=== PATIENT | female | born 1965 ===

== ENCOUNTER 2022-07-10 16:40 | Inpatient (IN) | payer SELFPAY ==
[~2022-07-10 16:40] MED LIST: Iopamidol 755 Mg/ML 100 ML Bottle IV ONE
[2022-07-10] MEDS ORDERED: Albuterol/Ipratropium 3.0-0.5 MG/3 ML Neb Soln INH ONE (17:06)
[2022-07-10] MEDS ORDERED: methylPREDNISolone Sodium Succinate 125 MG/2 ML SDV IV ONE (17:06)
[2022-07-10] MEDS ORDERED: Sodium Chloride 0.9% 1,000 ML IV ONE ×2 (17:06→17:23)
[2022-07-10] MEDS ORDERED: Morphine 4 MG/ML Syringe IV ONE (17:06)
[2022-07-10] MEDS ORDERED: cefTRIAXone 1 GM in Sodium Chloride 0.9% 50 ML IV ONE (17:23)
[2022-07-10] MEDS ORDERED: Montelukast 10 MG Tab PO ONE (22:18)
[2022-07-10] MEDS ORDERED: Gabapentin 800 MG Tab PO ONE (22:18)
[2022-07-10] MEDS ORDERED: oxyCODONE 5 MG Tab PO ONE (22:18)
[2022-07-10] MEDS ORDERED: Benzonatate 100 MG Cap PO ONE (23:25)
[2022-07-10] MEDS ORDERED: Enoxaparin 40 MG/0.4 ML Syringe SUBCUT ONE (23:25)
[2022-07-10] MEDS ORDERED: Insulin Glargine,Hum.Rec.Anlog 100 UNIT/ML 3 ML Pen SUBCUT ONE (23:30)
[2022-07-11] MEDS ORDERED: Gabapentin 800 MG Tab PO ONE ×2 (06:30→21:30)
[2022-07-11] MEDS ORDERED: Pantoprazole 40 MG Tab.CR PO ONE (09:00)
[2022-07-11] MEDS ORDERED: Benzonatate 100 MG Cap PO ONE ×2 (10:25→21:40)
[2022-07-11] MEDS ORDERED: methylPREDNISolone Sodium Succinate 40 MG/1 ML SDV IVPUSH ONE ×2 (10:30→22:00)
[2022-07-11] MEDS ORDERED: Albuterol/Ipratropium 3.0-0.5 MG/3 ML Neb Soln INH ONE ×3 (10:30→23:45)
[2022-07-11] MEDS ORDERED: Insulin Aspart 100 Units/ML 3 ML Pen SUBCUT ONE (12:00)
[2022-07-11] MEDS ORDERED: oxyCODONE 5 MG Tab PO ONE ×2 (12:00→21:40)
[2022-07-11] MEDS ORDERED: Montelukast 10 MG Tab PO ONE (21:30)
[2022-07-11] MEDS ORDERED: LORazepam 0.5 MG Tab PO ONE (21:40)
[2022-07-12] MEDS ORDERED: Albuterol/Ipratropium 3.0-0.5 MG/3 ML Neb Soln INH ONE ×4 (05:00→23:00)
[2022-07-12] MEDS ORDERED: Gabapentin 800 MG Tab PO ONE ×3 (05:15→22:00)
[2022-07-12] MEDS ORDERED: Benzonatate 100 MG Cap PO ONE ×2 (05:25→21:00)
[2022-07-12] MEDS ORDERED: Levofloxacin/Dextrose 5%-Water 150 ML IV ONE (10:05)
[2022-07-12] MEDS ORDERED: Pantoprazole 40 MG Tab.CR PO ONE (10:10)
[2022-07-12] MEDS ORDERED: methylPREDNISolone Sodium Succinate 40 MG/1 ML SDV IVPUSH ONE ×2 (10:25→22:00)
[2022-07-12] MEDS ORDERED: Codeine/guaiFENesin 10-100 MG/5 ML Syrup 5 ML Cup PO ONE (14:10)
[2022-07-12] MEDS ORDERED: Montelukast 10 MG Tab PO ONE (21:00)
[2022-07-12] MEDS ORDERED: LORazepam 0.5 MG Tab PO ONE (21:00)
[2022-07-13] MEDS ORDERED: Gabapentin 800 MG Tab PO ONE ×2 (05:45→13:32)
[2022-07-13] MEDS ORDERED: Albuterol/Ipratropium 3.0-0.5 MG/3 ML Neb Soln INH ONE (05:45)
[2022-07-13] MEDS ORDERED: methylPREDNISolone Sodium Succinate 40 MG/1 ML SDV IVPUSH ONE (09:10)
[2022-07-13] MEDS ORDERED: Pantoprazole 40 MG Tab.CR PO ONE (09:10)
[2022-07-13] MEDS ORDERED: Levofloxacin/Dextrose 5%-Water 150 ML IV ONE (09:25)
[2022-07-13] MEDS ORDERED: Enoxaparin 40 MG/0.4 ML Syringe SUBCUT ONE (09:25)
== END 2022-07-13 12:00 | disposition home or self-care (01) | DRG 196 ==
LOC: MW.ED 16:40 → MW.ZCENSUS 21:25
PROVIDERS: ATTEND Internal Medicine
PROC: 3E0234Z Introduction of Serum, Toxoid and Vaccine into Muscle, Percutaneous Approach (ICD-10-PCS; principal; 2022-07-13)
DX: J84.10 Pulmonary fibrosis, unspecified (principal); J18.9 Pneumonia, unspecified organism; J96.10 Chronic respiratory failure, unspecified whether with hypoxia or hypercapnia; G89.29 Other chronic pain; E11.9 Type 2 diabetes mellitus without complications; Z99.81 Dependence on supplemental oxygen; Z23 Encounter for immunization
CPT/HCPCS: 71045; 71045-26; 71275; 71275-26; 96361; 96374; 96375; 99285-25; A9270-GY; J0696; J1650; J1815-GY; J1956; J2270; J2920; J2930; J7030; J7620-GY; Q9967